=== PATIENT | male | born 1980 | race Caucasian/White ===

== ENCOUNTER 2023-05-28 23:54 | Emergency (ER) | payer OTHER ==
[~2023-05-28] VITALS: Ht 193 cm; Wt 100.0 kg
[2023-05-29 00:28] VITALS: BP 119/73; PULSE 98; RESP 18; TEMP 98; O2SAT 100
== END 2023-05-29 02:24 | disposition home or self-care (01) ==
LOC: ER 23:54
DX: M79.605 Pain in left leg (principal); M79.604 Pain in right leg; F41.9 Anxiety disorder, unspecified; F32.A Depression, unspecified; F43.10 Post-traumatic stress disorder, unspecified
CPT/HCPCS: 93970; 99284

== ENCOUNTER 2023-08-16 05:38 | Emergency (ER) | payer MEDICAID ==
[~2023-08-16] VITALS: Ht 193 cm; Wt 89.0 kg
[2023-08-16 06:14] LABS: BASOPHILS % 0.8 % (0.0-2.0); EOSINOPHILS % 1.2 % (0.0-5.0); HEMATOCRIT. 41.3 % (42.0-52.0); HEMOGLOBIN. 14.4 g/dL (14.0-18.0); LYMPHOCYTES % 22.9 % (20.0-50.0); MEAN CORPUSCULAR HGB CONC 34.8 g/dL (31.0-37.0); MEAN CORPUSCULAR VOLUME 91.8 fL (80.0-94.0); MEAN PLATELET VOLUME 6.8 fl (7.4-10.4); MONOCYTES % 9.8 % (2.0-8.0); NEUTROPHILS % 65.3 % (40.0-76.0); PLATELET 419 x1000/uL (130-400); RED CELL DISTRIBUTION WIDTH 13.2 % (11.6-14.6); WHITE BLOOD COUNT 10.6 x1000/uL (4.5-11.0)
[2023-08-16 06:16] VITALS: O2SAT 99
[2023-08-16 06:38] LABS: CHLORIDE 105 mEq/L (98-107); POTASSIUM 3.5 mEq/L (3.5-5.1); SODIUM 139 mEq/L (136-145)
[2023-08-16 06:39] LABS: CALCIUM 9.6 mg/dL (8.7-10.4); CARBON DIOXIDE 29 mEq/L (21-32)
[2023-08-16 06:44] LABS: CREATININE 0.9 mg/dL (0.6-1.3); GLUCOSE 85 mg/dL (70-105); UREA NITROGEN BLOOD 16 mg/dL (9-23)
[2023-08-16 08:46] LABS: ALANINE AMINOTRANSFERASE 15 IU/L (10-49); ALBUMIN 4.5 g/dL (3.2-4.8); ASPARTATE AMINOTRANSFERASE 18 IU/L (<34); BILIRUBIN DIRECT 0.2 mg/dL (<=3.0); BILIRUBIN TOTAL 0.5 mg/dL (0.1-1.0); PROTEIN TOTAL 7.2 g/dL (6.0-8.3)
[2023-08-16] MEDS: ACETAMINOPHEN 325MG TABLET PO ONE (08:54)
[2023-08-16] MEDS ORDERED: METR-167 MT (10:50)
[2023-08-16] MEDS ORDERED: CIPR-263 MT (10:50)
[2023-08-16 11:26] VITALS: BP 119/67; PULSE 80; RESP 18; TEMP 98.7
== END 2023-08-16 11:29 | disposition home or self-care (01) ==
LOC: ER 05:38
DX: K52.89 Other specified noninfective gastroenteritis and colitis (principal); F41.9 Anxiety disorder, unspecified; F32.A Depression, unspecified
CPT/HCPCS: 36415; 74176; 80048; 80076; 85025; 99284